=== PATIENT | female | born 1985 | race Two or more races ===

== ENCOUNTER 2022-06-14 06:56 | Emergency (ER) | payer MEDICAID ==
[~2022-06-14] VITALS: Ht 157.5 cm; Wt 70.9 kg
[2022-06-14 07:53] LABS: Basophils # (auto) 0 10 ^3/uL (0-0.2); Basophils % (auto) 0.2 % (0.0-2.0); Eosinophils # (auto) 0 10 ^3/uL (0-0.8); Hemoglobin 9.2 g/dL (12.2-16.2); Neutrophils % (auto) 73.8 % (37.0-80.0)
[2022-06-14 07:55] LABS: Eosinophils % (auto) 0.2 % (0.0-7.0); Hematocrit 28.8 % (36.0-46.0); Lymphocytes # (auto) 2.3 10 ^3/uL (0.4-5.4); Lymphocytes % (auto) 17.2 % (10.0-50.0); Mean Corpuscular Hemoglobin 26.3 pg (28.0-32.0); Mean Corpuscular Volume 82.1 fL (80.0-100.0); Monocytes # (auto) 1.2 10 ^3/uL (0-1.3); Monocytes % (auto) 8.6 % (0.0-12.0); Red Cell Distribution Width 14.9 % (11.8-14.3); White Blood Cell 13.5 10^3/uL (4.4-10.8)
[2022-06-14 08:07] LABS: Albumin 2.4 g/dL (3.4-5.0); Calcium 8.7 mg/dL (8.5-10.1)
[2022-06-14 08:11] LABS: BUN/Creatinine Ratio 26.7; Bilirubin, Total 1.1 mg/dL (0.2-1.0); Total Protein 7.9 g/dL (6.4-8.2)
[2022-06-14 08:17] LABS: Potassium 2.9 mmol/L (3.5-5.1)
[2022-06-14] MEDS ORDERED: ONDANSETRON HCL 4 MG/2 ML VIAL IV ONE (08:30)
[2022-06-14] MEDS ORDERED: SODIUM CHLORIDE 0.9% 1,000 ML IV ONE (08:30)
[2022-06-14] MEDS ORDERED: FAMOTIDINE (10MG/ML) 2ML VL IV ONE (08:30)
[2022-06-14] MEDS ORDERED: POTASSIUM EFFERVESENT TAB 25 MEQ PO ONE ×2 (08:30→11:00)
[2022-06-14] MEDS ORDERED: MAALOX PLUS or MAALOX 30 ML PO ONE (08:30)
[2022-06-14 08:46] LABS: Urine Bacteria FEW /hpf (None Seen); Urine Blood Negative /uL (Negative); Urine Hyaline Cast MOD /lpf (0 - 2); Urine Mucus FEW (None Seen); Urine Specific Gravity 1.026 (1.001-1.035); Urine WBC 7 /hpf (0 - 5)
[2022-06-14 13:11] VITALS: BP 120/73
== END 2022-06-14 13:11 | disposition home or self-care (01) ==
LOC: ER 06:56
DX: R10.13 Epigastric pain (principal); R19.7 Diarrhea, unspecified; Z32.02 Encounter for pregnancy test, result negative
CPT/HCPCS: 36415; 80053; 81001; 81025; 83690; 84132; 85025; 96361; 96374; 96375; 99284; J2405; J3490; J7030

== ENCOUNTER 2024-06-20 16:25 | Inpatient (IN) | payer MEDICAID, OTHER ==
[~2024-06-20] VITALS: Ht 157.5 cm; Wt 72.6 kg
[2024-06-20 17:17] LABS: Basophils % (auto) 0.3 % (0.0-2.0); Eosinophils # (auto) 0 10 ^3/uL (0-0.8); Eosinophils % (auto) 0.2 % (0.0-7.0); Hemoglobin 8.3 g/dL (12.2-16.2); Lymphocytes # (auto) 1.7 10 ^3/uL (0.4-5.4); Mean Corpuscular Volume 81.4 fL (80.0-100.0)
[2024-06-20 17:19] LABS: Basophils # (auto) 0 10 ^3/uL (0-0.2); Hematocrit 26.3 % (36.0-46.0); Mean Corpuscular Hemoglobin 25.6 pg (28.0-32.0); Mean Corpuscular Hgb Conc. 31.5 g/dL (32.0-36.0); Monocytes # (auto) 0.9 10 ^3/uL (0-1.3); Neutrophils # (auto) 12.4 10 ^3/uL (1.6-8.6); Neutrophils % (auto) 82.5 % (37.0-80.0); Platelet Count (auto) 661 10^3/uL (140-450); Red Blood Cells 3.23 10^6/uL (4.0-5.20); Red Cell Distribution Width 15.5 % (11.8-14.3)
[2024-06-20 17:35] LABS: Alanine Aminotransferase 10 U/L (7-40); Albumin 3.6 g/dL (3.2-4.8); Alkaline Phosphatase 60 U/L (46-116); Anion Gap 9 (5-15); Blood Urea Nitrogen 13 mg/dL (9-23); Calcium 9.2 mg/dL (8.7-10.4); Carbon Dioxide 25 mmol/L (20-31); Chloride 102 mmol/L (98-107); Magnesium 1.6 mg/dL (1.6-2.6); Potassium 4.2 mmol/L (3.5-5.1); Sodium 136 mmol/L (136-145)
[2024-06-20 17:36] LABS: Bilirubin, Total 0.4 mg/dL (0.2-1.0); Total Protein 7.6 g/dL (5.7-8.2)
[2024-06-20 17:38] LABS: INR 1.19 (0.9-1.15); Partial Thromboplastin Time 27.1 SEC (24.5-34.5); Prothrombin Time 12.4 sec (9.3-11.8)
[2024-06-20 17:43] LABS: Aspartate Aminotransferase 42 U/L (13-40); Glucose 133 mg/dL (74-106)
[2024-06-20] MEDS: IOHEXOL 300 MG/ML 100ML BOTTLE IJ ONE (17:57)
[2024-06-20] MEDS: SODIUM CHLORIDE 0.9% 500 ML IV ONE (18:00)
--- NOTE | 2024-06-20 18:21 | DVH ---
EXAMINATION: AP portable chest radiograph CLINICAL HISTORY: tachycardia COMPARISON: None FINDINGS: Central interstitial prominence. Right basilar opacity with blunting of the right costophrenic angle. Left lung is relatively clear. The cardiomediastinal silhouette appears within normal limits given t echnique. No definite pneumothorax. Gaseous bowel distention noted in the left upper quadrant. IMPRESSION: Right pleural effusion/atelectasis. Underlying consolidation not excluded. Pulmonary vascular congestion. Please correlate to exclude atypical infection.
--- NOTE | 2024-06-20 18:25 | DVH ---
EXAM: CT Abdomen and Pelvis Without and With Intravenous Contrast CLINICAL INDICATION: Abdominal mass TECHNIQUE: Axial computed tomography images of the abdomen and pelvis without and with intravenous c ontrast. This CT exam was performed using one or more of the following dose reduction techniques: a utomated exposure control, adjustment of the mA and/or kV according to patient size, and/or use of it erative reconstruction technique. CONTRAST: COMPARISON: None FINDINGS: LUNG BASES: See below. PLEURAL SPACE: Right pleural effusion with compressive atelectasis. ABDOMEN: LIVER: Fatty liver. GALLBLADDER AND BILE DUCTS: Unremarkable. No calcified stones. No ductal dilation. PANCREAS: Unremarkable. No mass. No ductal dilation. SPLEEN: Unremarkable. No splenomegaly. ADRENALS: Unremarkable. No mass. KIDNEYS AND URETERS: Unremarkable. No solid mass. No obstructing stones. No hydronephrosis. STOMACH AND BOWEL: Unremarkable. No obstruction. No mucosal thickening. PELVIS: APPENDIX: No findings to suggest acute appendicitis. BLADDER: Unremarkable. No mass. No stones. REPRODUCTIVE: Unremarkable as visualized. ABDOMEN and PELVIS: INTRAPERITONEAL SPACE: Ascites. No free air. BONES/JOINTS: No acute fracture. No dislocation. SOFT TISSUES: Ill-defined soft tissue mass occupying close to the entire mid right abdomen measurin g up to 26.3 cm, concerning for neoplastic process such as sarcoma or gynecologic origin. VASCULATURE: Unremarkable. No abdominal aortic aneurysm. LYMPH NODES: Unremarkable. No enlarged lymph nodes. OTHER FINDINGS: . . . IMPRESSION: 1. Ill-defined soft tissue mass occupying close to the entire mid right abdomen measuring up to 26.3 cm, concerning for neoplastic process such as sarcoma or gynecologic origin. 2. Right pleural effusion with compressive atelectasis.
--- NOTE | 2024-06-20 18:50 | ED.PDOC ---
General HPI Comments Sandra Arora is a 38-year-old female patient who presents to ED with chief complaint of intermittent dull abdominal pain which has been occurring for the past month associated with increased abdominal distention, increase in weight (patient did not quantify), bilateral leg swelling and decreased appetite (she only has one meal a day currently), today patient presented yellow serous secretion from umbilicus which prompted her visit to the ER. Patient's last menstrual period was on 04/29/2024. Denies palpitation, syncope, chest pain, dyspnea, nausea, vomiting, diarrhea, bleeding, sick contacts, recent travel and motor or sensory deficits. Past medical history: Denies Surgical history: Denies Family history: Mother has hypertension Social history: Lives in [place] with [id number]. Denies current tobacco, alcohol and other drug abuse back wedger: Last menstrual period 04/29/2024. Used to have regular cycles. She is not sexually active. Allergies: Denies Home medication: Tylenol p.r.n. Chief Complaint: Abdominal Pain Time Seen by MD: 16:32 Allergies: Coded Allergies: No Known Drug Allergy (Verified Allergy, Unknown, 06/14/22) Mode of Arrival: Ambulatory Past Medical History PAST MEDICAL HISTORY: Denies Surgical History: Denies all surgeries FULLERETTE History: Denies all FULLERETTE Hx Family History Family History: Reviewed,noncontributory to illness Social History Smoker: Non-Smoker Alcohol: Denies ETOH Use Drugs: Denies Drug Use Lives In: Home Physical Exam General Appearance: No Apparent Distress, Normal HEENT: Normal ENT Inspection, Pharynx Normal, TMs Normal Neck: Full Range of Motion, Non-Tender, Normal, Normal Inspection Respiratory: Chest Non-Tender, Lungs Clear, No Accessory Muscle Use, No Respiratory Distress, Normal Breath Sounds Cardiovascular: No Edema, No JVD, No Murmur, No Gallop, Normal Peripheral Pulses, Tachycardia Breast Exam: Deferred Gastrointestinal: Abnormal Bowel Sounds, Distended, Mass, No Pulsatile Mass, Soft, Suprapubic, Tenderness Genitalia: Deferred Pelvic: Deferred Rectal: Deferred Extremities: No calf tenderness, Normal capillary refill, Normal inspection, Normal range of motion, Non-tender, No pedal edema Neurologic: Alert, tour counselor II-XII nml as Tested, No Motor Deficits, Normal Affect, Normal Mood, No Sensory Deficits Cerebellar Function: Normal Reflexes: Normal Skin: Dry, Normal Color, Warm Lymphatic: No Adenopathy Was a procedure done? Was a procedure done?: No EKG EKG : Comments Sinus tachycardia at 140 beats per minute, no ST elevation Differential Diagnosis Kidney stone (Female): Ectopic , Ovarian torsion Urinary Problem (Female): PID, UTI Other Differential Diagnosis Sepsis, anemia, cancer X-Ray, Labs, Meds, VS Vital Signs Date Time Temp Pulse Resp B/P (MAP) Pulse Ox O2 Delivery O2 Flow Rate FiO2 06/20/24 17:17 97.1 145 18 133/89 (104) 98 Lab Test 06/20/24 17:08 Range/Units White Blood Count 15.0 H 4.4-10.8 10^3/uL Red Blood Count 3.23 L 4.0-5.20 10^6/uL Hemoglobin 8.3 L 12.2-16.2 g/dL Hematocrit 26.3 L 36.0-46.0 % Mean Corpuscular Volume 81.4 80.0-100.0 fL Mean Corpuscular Hemoglobin 25.6 L 28.0-32.0 pg Mean Corpuscular Hemoglobin Concent 31.5 L 32.0-36.0 g/dL Red Cell Distribution Width 15.5 H 11.8-14.3 % Platelet Count 661 H 140-450 10^3/uL Mean Platelet Volume 6.3 L 6.9-10.8 fL Neutrophils (%) (Auto) 82.5 H 37.0-80.0 % Lymphocytes (%) (Auto) 11.0 10.0-50.0 % Monocytes (%) (Auto) 6.0 0.0-12.0 % Eosinophils (%) (Auto) 0.2 0.0-7.0 % Basophils (%) (Auto) 0.3 0.0-2.0 % Neutrophils # (Auto) 12.4 H 1.6-8.6 10 ^3/uL Lymphocytes # (Auto) 1.7 0.4-5.4 10 ^3/uL Monocytes # (Auto) 0.9 0-1.3 10 ^3/uL Eosinophils # (Auto) 0 0-0.8 10 ^3/uL Basophils # (Auto) 0 0-0.2 10 ^3/uL Nucleated Red Blood Cells 0.0 % Prothrombin Time 12.4 H 9.3-11.8 sec Prothrombin Time INR 1.19 H 0.9-1.15 Activated Partial Thromboplast Time 27.1 24.5-34.5 SEC Sodium Level 136 136-145 mmol/L Potassium Level 4.2 3.5-5.1 mmol/L Chloride Level 102 98-107 mmol/L Carbon Dioxide Level 25 20-31 mmol/L Anion Gap 9 5-15 Blood Urea Nitrogen 13 9-23 mg/dL Creatinine 0.65 0.550-1.02 mg/dL Glomerular Filtration Rate Calc 114 >90 mL/min BUN/Creatinine Ratio 20.0 10.0-20.0 Serum Glucose 133 H 74-106 mg/dL Lactic Acid Level 3.0 *H 0.4-2.0 mmol/L Calcium Level 9.2 8.7-10.4 mg/dL Phosphorus Level 3.0 2.4-5.1 mg/dL Magnesium Level 1.6 1.6-2.6 mg/dL Total Bilirubin 0.4 0.2-1.0 mg/dL Aspartate Amino Transferase (AST) 42 H 13-40 U/L Alanine Aminotransferase (ALT) 10 7-40 U/L Alkaline Phosphatase 60 46-116 U/L Ammonia < 10 L 11-32 umol/L Total Protein 7.6 5.7-8.2 g/dL Albumin 3.6 3.2-4.8 g/dL Thyroid Stimulating Hormone (TSH) Pending Beta HCG, Quantitative 0.4 L 1.5-4.2 mIU/mL Current Medications Medications (Trade) Dose Ordered Sig/Eveline Route Start Time Stop Time Status Last Admin Sodium Chloride 500 ml @ 500 mls/hr Q1H ONCE IV 06/20/24 18:00 06/20/24 18:59 06/20/24 18:00 X-Ray, Labs, Meds, VS Comment Laboratory results shows leukocytosis (15), normocytic anemia, increased lactic acid (three), borderline normal liver function test. 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 Patient will benefit from admission and IV antibiotics at this point. Suggest evaluation by back wedger specialist and eventual biopsy. Critical Care Note Critical Care Time?: No Stability Stability form required: No Heart Score Heart Score: Heart Score Response (Comments) Value History N/A 0 EKG N/A 0 Age N/A 0 Risk Factors N/A 0 Troponin N/A 0 Total 0 EZIO CRUZ RESIDENT Jun 20, 2024 18:50
[2024-06-20] MEDS ORDERED: ONDANSETRON HCL 4 MG/2 ML VIAL IV PRN ×2 (19:00→23:30)
[2024-06-20] MEDS ORDERED: MORPHINE SULFATE INJ 2 MG/ml SYRG IV PRN ×2 (19:00→23:30)
--- NOTE | 2024-06-20 19:02 | DVH ---
EXAM: US Abdomen Limited CLINICAL INDICATION: ASCITES, evaluate eventual paracentesis TECHNIQUE: Real-time ultrasound of the abdomen with image documentation. COMPARISON: None FINDINGS: SOFT TISSUES: Isoechoic structure within the umbilicus region, likely mass or bowel. FREE FLUID: No ascites. OTHER FINDINGS: . . IMPRESSION: 1. Isoechoic structure within the umbilicus region, likely mass or bowel. 2. No ascites.
[2024-06-20 19:26] LABS: % Iron Saturation 6.4 % (15-50)
[2024-06-20] MEDS: cefTRIAXone 1GM/50ML D5W 50 ML IV ONE (19:32)
[2024-06-20] MEDS: PANTOPRAZOLE 40 MG/10 ML VIAL INJ IV ONE (19:32)
--- NOTE | 2024-06-20 21:47 | DVHHPRES ---
Review of Systems Allergies: Coded Allergies: No Known Drug Allergy (Verified Allergy, Unknown, 06/14/22) Medications Current Medications Medications Dose Ordered Sig/Eveline Route Start Time Stop Time Status Last Admin Dose Admin Ceftriaxone Sodium 50 ml @ 100 mls/hr DAILY@09 IV 06/21/24 09:00 Morphine Sulfate 1 mg Q4HP PRN IV 06/20/24 19:00 Ondansetron HCl 4 mg Q4HPRN PRN IV 06/20/24 19:00 Pantoprazole Sodium 40 mg DAILY IV 06/21/24 10:00 Exam Vital Signs Vital Signs Date Time Temp Pulse Resp B/P (MAP) Pulse Ox O2 Delivery O2 Flow Rate FiO2 06/20/24 18:54 121 18 98 Room Air 06/20/24 18:54 98.0 140/86 (104) 98.0 Labs/Xrays Labs Test 06/20/24 18:41 06/20/24 17:08 Range/Units Lactic Acid Level 2.6 *H 0.4-2.0 mmol/L Iron Level 15 L 50-170 ug/dL Total Iron Binding Capacity 235 L 250-425 ug/dL Percent Iron Saturation 6.4 L 15-50 % White Blood Count 15.0 H 4.4-10.8 10^3/uL Red Blood Count 3.23 L 4.0-5.20 10^6/uL Hemoglobin 8.3 L 12.2-16.2 g/dL Hematocrit 26.3 L 36.0-46.0 % Mean Corpuscular Volume 81.4 80.0-100.0 fL Mean Corpuscular Hemoglobin 25.6 L 28.0-32.0 pg Mean Corpuscular Hemoglobin Concent 31.5 L 32.0-36.0 g/dL Red Cell Distribution Width 15.5 H 11.8-14.3 % Platelet Count 661 H 140-450 10^3/uL Mean Platelet Volume 6.3 L 6.9-10.8 fL Neutrophils (%) (Auto) 82.5 H 37.0-80.0 % Lymphocytes (%) (Auto) 11.0 10.0-50.0 % Monocytes (%) (Auto) 6.0 0.0-12.0 % Eosinophils (%) (Auto) 0.2 0.0-7.0 % Basophils (%) (Auto) 0.3 0.0-2.0 % Neutrophils # (Auto) 12.4 H 1.6-8.6 10 ^3/uL Lymphocytes # (Auto) 1.7 0.4-5.4 10 ^3/uL Monocytes # (Auto) 0.9 0-1.3 10 ^3/uL Eosinophils # (Auto) 0 0-0.8 10 ^3/uL Basophils # (Auto) 0 0-0.2 10 ^3/uL Nucleated Red Blood Cells 0.0 % Prothrombin Time 12.4 H 9.3-11.8 sec Prothrombin Time INR 1.19 H 0.9-1.15 Activated Partial Thromboplast Time 27.1 24.5-34.5 SEC Sodium Level 136 136-145 mmol/L Potassium Level 4.2 3.5-5.1 mmol/L Chloride Level 102 98-107 mmol/L Carbon Dioxide Level 25 20-31 mmol/L Anion Gap 9 5-15 Blood Urea Nitrogen 13 9-23 mg/dL Creatinine 0.65 0.550-1.02 mg/dL Glomerular Filtration Rate Calc 114 >90 mL/min BUN/Creatinine Ratio 20.0 10.0-20.0 Serum Glucose 133 H 74-106 mg/dL Calcium Level 9.2 8.7-10.4 mg/dL Phosphorus Level 3.0 2.4-5.1 mg/dL Magnesium Level 1.6 1.6-2.6 mg/dL Total Bilirubin 0.4 0.2-1.0 mg/dL Aspartate Amino Transferase (AST) 42 H 13-40 U/L Alanine Aminotransferase (ALT) 10 7-40 U/L Alkaline Phosphatase 60 46-116 U/L Ammonia < 10 L 11-32 umol/L Total Protein 7.6 5.7-8.2 g/dL Albumin 3.6 3.2-4.8 g/dL Thyroid Stimulating Hormone (TSH) 5.14 H 0.55-4.78 uIU/mL Beta HCG, Quantitative 0.4 L 1.5-4.2 mIU/mL CORAZON HERNANDES RESDIENT Jun 20, 2024 21:47
[2024-06-20 22:28] VITALS: RESP 18; O2SAT 97
[2024-06-20 23:17] VITALS: BP 111/70; PULSE 106; RESP 18; TEMP 97.9; O2SAT 98
[2024-06-20] MEDS ORDERED: HYDROcodone-ACET 5/325MG TAB PO PRN (23:30)
[2024-06-20] MEDS: SODIUM CHLORIDE 0.9% 1,000 ML IV SCH (23:30)
[2024-06-20] MEDS ORDERED: ACETAMINOPHEN 325 MG TAB PO PRN (23:30)
--- NOTE | 2024-06-20 23:43 | DVHHP2 ---
Admitting Diagnosis: Admission date: 06/20/24 Yellow serous secretion from umbilicus with other associated symptoms. History of Present Illness Patient is a 38 old female who presents to the emergency department for intermittent lower abdominal pain has been around for the past month and also associated with increased abdominal distention, bilateral leg swelling, decreased appetite, and increase in weight. Today patient presented with yellow serous secretion from umbilicus which motivated her to visit the ER. Patient states that her last menstrual cycle was 04/29/2024. Denies palpitation, syncope, chest pain, dyspnea, nausea, vomiting, diarrhea, bleeding, sick contacts, recent travel and motor or sensory deficits. While in the emergency department the patient was evaluated by the provider, As per provider: Labs, vital signs, and imagining monitored. Patient will be admitted for further evaluation and treatment. I discussed admission with the patient/family and is in agreement to treatment plan. Allergies: Coded Allergies: No Known Drug Allergy (Verified Allergy, Unknown, 06/14/22) Current Medications Current Medications Medications (Trade) Dose Ordered Sig/Eveline Route PRN Reason Start Time Stop Time Status Last Admin Ceftriaxone Sodium 50 ml @ 100 mls/hr DAILY@09 IV 06/21/24 09:00 06/21/24 09:30 Pantoprazole Sodium (Protonix) 40 mg DAILY IV 06/21/24 10:00 06/21/24 09:32 Sodium Chloride 1,000 ml @ 60 mls/hr [id number] IV 06/20/24 23:30 06/20/24 23:30 Acetaminophen/ Hydrocodone Bitart ([place] 5/325MG Tab) 1 tab Q4HP PRN PO MODERATE PAIN (4-6 PAIN SCALE) 06/20/24 23:30 Ondansetron HCl (Zofran) 4 mg Q4HP PRN IV NAUSEA / VOMITING 06/20/24 23:30 Docusate Sodium (Colace Capsule) 100 mg BIDPRN PRN PO FOR CONSTIPATION 06/20/24 23:30 Enoxaparin Sodium (Lovenox) 40 mg DAILY SC 06/21/24 10:00 06/21/24 09:32 Acetaminophen (Tylenol Tablet) 650 mg Q6HP PRN PO PAIN SCALE 1-3 OR TEMP>100.4 06/20/24 23:30 Morphine Sulfate 2 mg Q4HPRN PRN IV SEVERE PAIN (7-10 PAIN SCALE) 06/20/24 23:30 Iron Sucrose 110 ml @ 110 mls/hr DAILY@1200 IV 06/21/24 12:00 06/25/24 12:59 06/21/24 12:11 Review of Systems Constitutional: denies chills, denies fever, denies malaise Eyes: denies eye pain, denies vision change ENT: denies ear pain, denies headache, denies nasal congestion, denies painful swallowing, denies voice change Cardiovascular: denies chest pain, denies edema, denies orthopnea, denies palpitations, denies paroxysmal nocturnal dyspnea Respiratory: denies cough, denies shortness of breath Gastrointestinal: denies constipation, denies diarrhea, denies nausea, denies vomiting Genitourinary: denies dysuria, denies frequent urination, denies urethral discharge Musculoskeletal: denies back pain, denies joint pain, denies muscle pain Skin: denies bruising, denies itching, denies rash Neurological: denies focal weakness, denies headache, denies sensory changes Psychiatric: denies anxiety, denies depression Endocrine: denies polydipsia, denies polyuria Hematologic/Lymphatic: denies easy bleeding, denies easy bruising, denies enlarged lymph nodes Allergic/Immunologic: denies allergy, denies hives Vital Signs Vital Signs Date Time Temp Pulse Resp B/P (MAP) Pulse Ox O2 Delivery O2 Flow Rate FiO2 06/21/24 16:39 98.1 97 18 110/64 (79) 96 98.1 06/21/24 13:40 Room Air* 0 21 Physical Exam General Appearance: alert, no distress HEENT: EOMI, PERRLA, normal external inspect of ears, no icterus, no nasal drainage Neck: no carotid bruit, no jugular venous distention (JVD), no lymphadenopathy Chest: normal thorax Respiratory: clear to auscultation, normal air movement Cardiovascular: regular rate and rhythm, no diastolic murmur, no jugular venous distention (JVD), no rub, no systolic murmur Abdominal: soft, no hepatomegaly, no mass, no splenomegaly, no tenderness Genitourinary: grossly normal external Musculoskeletal: no joint tenderness, no swelling Extremities: normal pulses, no calf tenderness, no clubbing, no cyanosis, no edema Skin: no bruising, no jaundice, no rash Neurological: alert, No focal deficit Results Labs Test 06/21/24 04:30 06/21/24 04:25 06/20/24 23:57 06/20/24 18:41 Range/Units Urine Color Yellow Yellow Urine Clarity Turbid H Clear Urine pH 6.0 5.0-9.0 Urine Specific [place] > 1.050 H 1.001-1.035 Urine Protein 1+ H Negative Urine Ketones Negative Negative Urine Blood Negative Negative /uL Urine Nitrite Negative Negative Urine Bilirubin Negative Negative Urine Urobilinogen Normal Negative mg/dL Urine Leukocyte Esterase 2+ Negative /uL Urine RBC 7 0 - 4 /hpf Urine Microscopic WBC 19 H 0-5 /HPF Urine Squamous Epithelial Cells Few <5 /hpf Urine Bacteria None seen None Seen /hpf Urine Hyaline Casts Few 0 - 2 /lpf Urine Mucus Few None Seen Urine Glucose Normal Normal mg/dL Urine Opiates Screen Neg NEGATIVE Urine Fentanyl Screen Neg NEGATIVE Urine Barbiturates Screen Neg NEGATIVE Urine Phencyclidine Screen Neg NEGATIVE Urine Amphetamines Screen Neg NEGATIVE Urine Benzodiazepines Screen Neg NEGATIVE Urine Cocaine Screen Neg NEGATIVE Urine Cannabinoids Screen Neg NEGATIVE White Blood Count 14.1 H 4.4-10.8 10^3/uL Red Blood Count 3.03 L 4.0-5.20 10^6/uL Hemoglobin 7.7 L 12.2-16.2 g/dL Hematocrit 24.7 L 36.0-46.0 % Mean Corpuscular Volume 81.3 80.0-100.0 fL Mean Corpuscular Hemoglobin 25.4 L 28.0-32.0 pg Mean Corpuscular Hemoglobin Concent 31.2 L 32.0-36.0 g/dL Red Cell Distribution Width 15.5 H 11.8-14.3 % Platelet Count 567 H 140-450 10^3/uL Mean Platelet Volume 6.8 L 6.9-10.8 fL Neutrophils (%) (Auto) 78.8 37.0-80.0 % Lymphocytes (%) (Auto) 14.6 10.0-50.0 % Monocytes (%) (Auto) 5.5 0.0-12.0 % Eosinophils (%) (Auto) 0.2 0.0-7.0 % Basophils (%) (Auto) 0.9 0.0-2.0 % Neutrophils # (Auto) 11.1 H 1.6-8.6 10 ^3/uL Lymphocytes # (Auto) 2.1 0.4-5.4 10 ^3/uL Monocytes # (Auto) 0.8 0-1.3 10 ^3/uL Eosinophils # (Auto) 0 0-0.8 10 ^3/uL Basophils # (Auto) 0.1 0-0.2 10 ^3/uL Nucleated Red Blood Cells 0.0 % Sodium Level 136 136-145 mmol/L Potassium Level 4.2 3.5-5.1 mmol/L Chloride Level 102 98-107 mmol/L Carbon Dioxide Level 25 20-31 mmol/L Anion Gap 9 5-15 Blood Urea Nitrogen 13 9-23 mg/dL Creatinine 0.65 0.550-1.02 mg/dL Glomerular Filtration Rate Calc 114 >90 mL/min BUN/Creatinine Ratio 20.0 10.0-20.0 Serum Glucose 88 74-106 mg/dL Calcium Level 8.7 8.7-10.4 mg/dL Total Bilirubin 0.3 0.2-1.0 mg/dL Aspartate Amino Transferase (AST) 33 13-40 U/L Alanine Aminotransferase (ALT) < 9 7-40 U/L Alkaline Phosphatase 50 46-116 U/L Total Protein 7.1 5.7-8.2 g/dL Albumin 3.6 3.2-4.8 g/dL Lactate Dehydrogenase 220 120-246 U/L Carcinoembryonic Antigen 51.28 <=5.0 ng/mL Lactic Acid Level 2.6 *H 0.4-2.0 mmol/L Iron Level 15 L 50-170 ug/dL Total Iron Binding Capacity 235 L 250-425 ug/dL Percent Iron Saturation 6.4 L 15-50 % Test 06/20/24 17:08 Range/Units Prothrombin Time 12.4 H 9.3-11.8 sec Prothrombin Time INR 1.19 H 0.9-1.15 Activated Partial Thromboplast Time 27.1 24.5-34.5 SEC Phosphorus Level 3.0 2.4-5.1 mg/dL Magnesium Level 1.6 1.6-2.6 mg/dL Ammonia < 10 L 11-32 umol/L Thyroid Stimulating Hormone (TSH) 5.14 H 0.55-4.78 uIU/mL Beta HCG, Quantitative 0.4 L 1.5-4.2 mIU/mL Microbiology Date/Time Source Procedure Growth Status 06/20/24 18:41 Blood Blood Culture - Preliminary NO GROWTH AFTER 24 HOURS OF INCUBATION. Resulted Plan 1. Sepsis Plan: Monitor, IV antibiotics 2. Acute cystitis without hematuria Plan: Monitor, PPI, DVT prophylaxis 3. Anemia, unspecified Plan: Monitor, IV iron 4. Uterine malignant neoplasm Plan: Monitor, SENIOR MARKETING ANALYST consult, tumor marker KG Plan discussed with: Patient, Other YOLA LAWRENCE NP Jun 20, 2024 23:43
[2024-06-21] VITALS (8 sets, daily range): BP systolic 95–118; BP diastolic 64–78; PULSE 95–100; RESP 14–19; TEMP 98–98.5; O2SAT 95–98
[2024-06-21 04:42] LABS: Urine Bacteria None Seen /hpf (None Seen)
[2024-06-21 04:52] LABS: Eosinophils # (auto) 0 10 ^3/uL (0-0.8); Eosinophils % (auto) 0.2 % (0.0-7.0); Hemoglobin 7.7 g/dL (12.2-16.2); Lymphocytes # (auto) 2.1 10 ^3/uL (0.4-5.4); Platelet Count (auto) 567 10^3/uL (140-450)
[2024-06-21 04:55] LABS: Basophils # (auto) 0.1 10 ^3/uL (0-0.2); Basophils % (auto) 0.9 % (0.0-2.0); Hematocrit 24.7 % (36.0-46.0); Lymphocytes % (auto) 14.6 % (10.0-50.0); Mean Corpuscular Hemoglobin 25.4 pg (28.0-32.0); Mean Corpuscular Hgb Conc. 31.2 g/dL (32.0-36.0); Mean Corpuscular Volume 81.3 fL (80.0-100.0); Monocytes # (auto) 0.8 10 ^3/uL (0-1.3); Monocytes % (auto) 5.5 % (0.0-12.0); Neutrophils # (auto) 11.1 10 ^3/uL (1.6-8.6); Neutrophils % (auto) 78.8 % (37.0-80.0); Red Blood Cells 3.03 10^6/uL (4.0-5.20); Red Cell Distribution Width 15.5 % (11.8-14.3); White Blood Cell 14.1 10^3/uL (4.4-10.8)
[2024-06-21 04:58] LABS: Urine Blood Negative /uL (Negative); Urine Clarity Turbid (Clear); Urine Color Yellow (Yellow); Urine Hyaline Cast FEW /lpf (0 - 2); Urine Mucus FEW (None Seen); Urine Protein, UAD 1+ (Negative); Urine Squamous Epithelial Cell FEW /hpf (<5); Urine Urobilinogen Normal (Negative); Urine WBC 19 /HPF (0-5)
[2024-06-21 05:00] LABS: Urine Specific Gravity > 1.050 (1.001-1.035)
[2024-06-21 05:10] LABS: Amphetamine Screen, Urine Neg (NEGATIVE); Benzodiazephine Screen, Urine Neg (NEGATIVE)
[2024-06-21 05:11] LABS: Barbiturate Scree,Urine Neg (NEGATIVE); Cocaine Screen, Urine Neg (NEGATIVE); Opiate Scree,Urine Neg (NEGATIVE)
[2024-06-21 05:15] LABS: Cannabinoid Screen, Urine Neg (NEGATIVE); Phencyclidine Screen, Urine Neg (NEGATIVE)
[2024-06-21 05:15] LABS: Albumin 3.6 g/dL (3.2-4.8); Alkaline Phosphatase 50 U/L (46-116); Anion Gap 9 (5-15); Aspartate Aminotransferase 33 U/L (13-40); Blood Urea Nitrogen 13 mg/dL (9-23); Carbon Dioxide 25 mmol/L (20-31); Chloride 102 mmol/L (98-107); Glucose 88 mg/dL (74-106); Potassium 4.2 mmol/L (3.5-5.1); Sodium 136 mmol/L (136-145)
[2024-06-21 05:16] LABS: Alanine Aminotransferase < 9 U/L (7-40); Bilirubin, Total 0.3 mg/dL (0.2-1.0); Calcium 8.7 mg/dL (8.7-10.4); Total Protein 7.1 g/dL (5.7-8.2)
[2024-06-21] MEDS: cefTRIAXone 1GM/50ML D5W 50 ML IV SCH (09:30)
[2024-06-21] MEDS: ENOXAPARIN SOD 40 MG/0.4 ML SYRINGE SC SCH (09:32)
[2024-06-21] MEDS: PANTOPRAZOLE 40 MG/10 ML VIAL INJ IV SCH (09:32)
[2024-06-21] MEDS: IRON SUCROSE COMPLEX 110 ML IV SCH (12:11)
--- NOTE | 2024-06-21 13:13 | ECG ---
[facility] Test Date: 2024-06-20 Test Time: 16:49:43 Pat Name: LILIYA FISH Department: ED Room: [facility]24[facility] Gender: F Extrusion Die Corrector: ANAMIKA : 1985 Requested By: YOLA LAWRENCE Order Number: [id number] Reading MD: Duong Wadsworth Measurements Intervals [place] Rate: 121 P: 104 ND: 117 QRS: -65 QRSD: 97 T: 27 QT: 298 QTc: 423 Interpretive Statements Sinus tachycardia Left anterior fascicular block Abnormal R-wave progression, late transition Electronically Signed On 06-22-2024 13:15:14 PST by Duong Wadsworth Please click the below link to view image of tracing.
--- NOTE | 2024-06-21 20:53 | DVHINCON2 ---
DATE OF CONSULTATION: 06/21/2024 REASON FOR CONSULTATION: Gynecological malignancy. HISTORY OF PRESENT ILLNESS: The patient is a 38-year-old 0, para 0 with last menstrual period 04/29/2024, admitted for intermittent abdominal pain, which has been occurring over the past few months with increased abdominal distention, increase in weight; however, no appetite to eat, associated with bilateral leg swelling. The patient denies having any vaginal bleeding. Her last Pap was a few years ago. The patient had a CT, which revealed an ill-defined soft tissue mass occupying close to entire mid right abdomen, measuring 26.3 cm, associated with right pleural effusion, isoechoic structure within the umbilical region, suspicious for uterine sarcoma. PAST MEDICAL HISTORY: None. PAST SURGICAL HISTORY: None. SOCIAL HISTORY: None. FAMILY HISTORY: None. OBSTETRIC AND GYNECOLOGIC HISTORY: The patient is nulligravid. REVIEW OF SYSTEMS: Review of systems is consistent with HPI. PHYSICAL EXAMINATION: VITAL SIGNS: Stable, afebrile. HEENT: Within normal limits. CARDIOVASCULAR: Regular rate and rhythm. LUNGS: Clear to auscultation. BREASTS: Decreased breath sounds at the base. ABDOMEN: Obese, distended, positive for generalized tenderness. PELVIC: External genitalia within normal limits. Vagina normal. Cervix grossly normal. Uterus unable to assess size due to abdominal distention. EXTREMITIES: No clubbing, cyanosis or edema. IMPRESSION: * Abdominal distention, soft tissue mass, suspicious for uterine malignant neoplasm, such as leiomyosarcoma. * Anemia. RECOMMENDATION: The patient needs to be seen by SUPPLY CHAIN PROCUREMENT MANAGER/ONC as soon as possible. The patient is scheduled for paracentesis. At this point, due to high level of acuity of this complex problem, recommend SUPPLY CHAIN PROCUREMENT MANAGER/Oncology evaluation as soon as possible. We will sign off. Anjali Brown DO MZ/PRM TID: [id number] RECEIPT: [id number]
--- NOTE | 2024-06-21 21:00 | DVHPN2 ---
Progress Note - Dictate Date Seen: Jun 21, 2024 Medical Necessity Reason Pt with a Central, PICC or Fol: No vital signs Vital Sign Date Time Temp Pulse Resp B/P (MAP) Pulse Ox O2 Delivery O2 Flow Rate FiO2 06/21/24 16:39 98.1 97 18 110/64 (79) 96 98.1 06/21/24 13:40 Room Air* 0 21 Total Intake and Output 06/20/24 06/20/24 06/21/24 15:00 23:00 07:00 Intake Total 550 ml 200 ml Balance 550 ml 200 ml medications Current Medications Medications Dose Ordered Sig/Eveline Route Start Time Stop Time Status Last Admin Dose Admin Ceftriaxone Sodium 50 ml @ 100 mls/hr DAILY@09 IV 06/21/24 09:00 06/21/24 09:30 Pantoprazole Sodium 40 mg DAILY IV 06/21/24 10:00 06/21/24 09:32 Sodium Chloride 1,000 ml @ 60 mls/hr [id number] IV 06/20/24 23:30 06/20/24 23:30 Acetaminophen/ Hydrocodone Bitart 1 tab Q4HP PRN PO 06/20/24 23:30 Ondansetron HCl 4 mg Q4HP PRN IV 06/20/24 23:30 Docusate Sodium 100 mg BIDPRN PRN PO 06/20/24 23:30 Enoxaparin Sodium 40 mg DAILY SC 06/21/24 10:00 06/21/24 09:32 Acetaminophen 650 mg Q6HP PRN PO 06/20/24 23:30 Morphine Sulfate 2 mg Q4HPRN PRN IV 06/20/24 23:30 Iron Sucrose 110 ml @ 110 mls/hr DAILY@1200 IV 06/21/24 12:00 06/25/24 12:59 06/21/24 12:11 objective General Appearance: alert, no distress HEENT: EOMI, PERRLA, normal external inspect of ears, no icterus, no nasal drainage Neck: no carotid bruit, no jugular venous distention (JVD), no lymphadenopathy Chest: normal thorax Respiratory: clear to auscultation, normal air movement Cardiovascular: regular rate and rhythm, no diastolic murmur, no jugular venous distention (JVD), no rub, no systolic murmur Abdominal: soft, no hepatomegaly, no mass, no splenomegaly, no tenderness Genitourinary: grossly normal external Musculoskeletal: no joint tenderness, no swelling Extremities: normal pulses, no calf tenderness, no clubbing, no cyanosis, no edema Skin: no bruising, no jaundice, no rash Neurological: alert, No focal deficit laboratory and microbiology Laboratory Tests 06/21/24 04:25 Test 06/21/24 04:25 Range/Units Serum Glucose 88 74-106 mg/dL Problem List 1. Sepsis Plan: Monitor, IV antibiotics 2. Acute cystitis without hematuria Plan: Monitor, PPI, DVT prophylaxis 3. Anemia, unspecified Plan: Monitor, IV iron 4. Uterine malignant neoplasm Plan: Monitor, UNDERWRITER M[employer]GAGE LOAN consult, tumor marker KG Assessment/Plan Subjective: Patient is awake and alert. Objective: Patient is a 38 year old female who states her last menses cycle was last year. Patient has a very large distended abdomen. Patients say she has lost lots of weight over the past several months, she can't remember how much. Patient appears to be emaciated with a large, distended abdomen. Patient's CT imaging shows a metastatic process. A patient states she has not received any follow up. Patient's sister and mother is at bedside. Plan: Waiting for obgyn and oncology consults. Plan discussed with: Patient, Other YOLA LAWRENCE NP Jun 21, 2024 21:00
[2024-06-21] MEDS: DOCUSATE SOD 100 MG CAP PO PRN (22:01)
[2024-06-22 01:00] VITALS: BP 100/62; PULSE 88; RESP 17; TEMP 98.6; O2SAT 97
[2024-06-22 05:00] VITALS: BP 99/57; PULSE 85; RESP 17; TEMP 97.8; O2SAT 98
[2024-06-22 08:30] VITALS: BP 113/65; PULSE 88; RESP 18; TEMP 97.8; O2SAT 97
[2024-06-22 12:58] VITALS: BP 107/75; PULSE 89; RESP 17; TEMP 97.7; O2SAT 97
[2024-06-22 14:19] LABS: Basophils # (auto) 0 10 ^3/uL (0-0.2); Basophils % (auto) 0.3 % (0.0-2.0); Eosinophils # (auto) 0.1 10 ^3/uL (0-0.8); Eosinophils % (auto) 0.6 % (0.0-7.0); Hematocrit 24.2 % (36.0-46.0); Hemoglobin 7.5 g/dL (12.2-16.2); Lymphocytes # (auto) 1.6 10 ^3/uL (0.4-5.4); Lymphocytes % (auto) 14.7 % (10.0-50.0); Mean Corpuscular Hemoglobin 25.2 pg (28.0-32.0); Mean Corpuscular Volume 81.2 fL (80.0-100.0); Monocytes # (auto) 0.8 10 ^3/uL (0-1.3); Neutrophils # (auto) 8.6 10 ^3/uL (1.6-8.6); Neutrophils % (auto) 77.4 % (37.0-80.0); Platelet Count (auto) 536 10^3/uL (140-450); Red Blood Cells 2.98 10^6/uL (4.0-5.20); Red Cell Distribution Width 15.7 % (11.8-14.3); White Blood Cell 11.1 10^3/uL (4.4-10.8)
[2024-06-22 14:28] LABS: Chloride 101 mmol/L (98-107); Potassium 3.7 mmol/L (3.5-5.1)
[2024-06-22 14:29] LABS: Anion Gap 9 (5-15); Carbon Dioxide 25 mmol/L (20-31)
[2024-06-22 14:30] LABS: Calcium 8.5 mg/dL (8.7-10.4); Sodium 135 mmol/L (136-145)
[2024-06-22 14:35] LABS: BUN/Creatinine Ratio 18.6 (10.0-20.0); Blood Urea Nitrogen 13 mg/dL (9-23)
[2024-06-22 14:43] LABS: Glucose 106 mg/dL (74-106)
[2024-06-22 16:43] VITALS: BP 107/73; PULSE 97; RESP 17; TEMP 98.7; O2SAT 97
--- NOTE | 2024-06-22 20:10 | DVHPN2 ---
Progress Note Date Seen: Jun 22, 2024 Medical Necessity Reason Pt with a Central, PICC or Fol: No Subjective Review of Systems: CVS:Normal, RESPIRATORY:Normal, GI:Normal Objective vital signs Vital Sign Date Time Temp Pulse Resp B/P (MAP) Pulse Ox O2 Delivery O2 Flow Rate FiO2 06/22/24 16:43 98.7 97 17 107/73 (84) 97 98.7 06/22/24 08:00 Room Air* 0 21 Total Intake and Output 06/21/24 06/21/24 06/22/24 15:00 23:00 07:00 Intake Total 650 ml 100 ml 300 ml Output Total 500 ml Balance 650 ml 100 ml -200 ml medications Current Medications Medications Dose Ordered Sig/Eveline Route Start Time Stop Time Status Last Admin Dose Admin Ceftriaxone Sodium 50 ml @ 100 mls/hr DAILY@09 IV 06/21/24 09:00 06/22/24 09:45 100 MLS/HR Pantoprazole Sodium 40 mg DAILY IV 06/21/24 10:00 06/22/24 09:45 40 MG Sodium Chloride 1,000 ml @ 60 mls/hr [id number] IV 06/20/24 23:30 06/22/24 08:50 60 MLS/HR Acetaminophen/ Hydrocodone Bitart 1 tab Q4HP PRN PO 06/20/24 23:30 Ondansetron HCl 4 mg Q4HP PRN IV 06/20/24 23:30 Docusate Sodium 100 mg BIDPRN PRN PO 06/20/24 23:30 06/21/24 22:01 100 MG Enoxaparin Sodium 40 mg DAILY SC 06/21/24 10:00 06/22/24 09:45 40 MG Acetaminophen 650 mg Q6HP PRN PO 06/20/24 23:30 Morphine Sulfate 2 mg Q4HPRN PRN IV 06/20/24 23:30 Iron Sucrose 110 ml @ 110 mls/hr DAILY@1200 IV 06/21/24 12:00 06/25/24 12:59 06/22/24 12:00 110 MLS/HR Examination: GENERAL:Normal, GENERAL:Abnormal (Emaciated), LUNGS:Normal, CVS:Normal, ABDOMEN:Abnormal (Severe distention), SKIN:Normal, NEURO:Normal laboratory and microbiology Laboratory Tests 06/22/24 13:50 Test 06/22/24 13:50 Range/Units Serum Glucose 106 74-106 mg/dL Microbiology Date/Time Source Procedure Growth Status 06/21/24 04:30 Voided Urine Urine Culture - Preliminary Resulted 06/20/24 18:41 Blood Blood Culture - Preliminary NO GROWTH AFTER 48 HOURS OF INCUBATION. Resulted Problem List/Assessment/Plan Problem List/Assessment/Plan 1. Sepsis Plan: Monitor, IV antibiotics 2. Acute cystitis without hematuria Plan: Monitor, PPI, DVT prophylaxis 3. Anemia, unspecified Plan: Monitor, IV iron 4. 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 Plan: Monitor, TOOLING SUPERVISOR consult, tumor marker KG Assessment/Plan Subjective: Patient is awake and alert. Objective: Patient is a 38 year old female who states her last menses cycle was last year. Patient has a very large distended abdomen. Patients say she has lost lots of weight over the past several months, she can't remember how much. Patient appears to be emaciated with a large, distended abdomen. Patient's CT imaging shows a metastatic process. Patient reports having this mass to abdomen for over a year and did not seek any medical attention. Patient was informed in detail that likely mass is malignancy.CA-19-9 is 1733 and CA 125 is 79.6, patient informed she needs to follow up with PCP and be referred to tertiary facility for assistant hvac mechanic-Oncology, patient did verbalize understanding. Today hemoglobin was 7.5 patient is getting IV infusions of iron. We will monitor hemoglobin overnight Plan: Monitor hemoglobin, likely we will discharge tomorrow, continue with IV antibiotics Plan discussed with: Patient My Orders My Orders Orders - SARAH CAPPS Procedure Category Date Status Time * Energy Technician CONS 06/22/24 Transmitted Consult Date of Service: Jun 22, 2024 Billing Provider: VIRAL JEONG MD Common Visit Codes: [id number] INP/OBS CARE (MOD) SARAH CAPPS Jun 22, 2024 20:10
[2024-06-22 21:00] VITALS: BP 107/61; PULSE 94; RESP 19; TEMP 98.7; O2SAT 100
[2024-06-23 01:00] VITALS: BP 102/65; PULSE 90; RESP 18; TEMP 97.8; O2SAT 96
[2024-06-23 05:00] VITALS: BP 99/58; PULSE 85; RESP 19; TEMP 98; O2SAT 97
[2024-06-23 07:16] LABS: Basophils # (auto) 0 10 ^3/uL (0-0.2); Eosinophils # (auto) 0.1 10 ^3/uL (0-0.8); Hemoglobin 7.4 g/dL (12.2-16.2); Nucleated Red Blood Cells % 0.1 %; White Blood Cell 11.3 10^3/uL (4.4-10.8)
[2024-06-23 07:20] LABS: Basophils % (auto) 0.2 % (0.0-2.0); Hematocrit 23.6 % (36.0-46.0); Lymphocytes % (auto) 17.5 % (10.0-50.0); Mean Corpuscular Hemoglobin 25.7 pg (28.0-32.0); Mean Corpuscular Hgb Conc. 31.4 g/dL (32.0-36.0); Mean Corpuscular Volume 81.9 fL (80.0-100.0); Monocytes % (auto) 8.7 % (0.0-12.0); Neutrophils # (auto) 8.2 10 ^3/uL (1.6-8.6); Neutrophils % (auto) 72.6 % (37.0-80.0); Platelet Count (auto) 530 10^3/uL (140-450); Red Blood Cells 2.88 10^6/uL (4.0-5.20); Red Cell Distribution Width 15.5 % (11.8-14.3)
[2024-06-23 07:54] VITALS: BP 105/67; PULSE 87; RESP 15; TEMP 98; O2SAT 97
[2024-06-23] MEDS ORDERED: FERR-7 PO (11:09)
[2024-06-23 11:53] VITALS: BP 105/66; PULSE 92; RESP 19; TEMP 98; O2SAT 95
[2024-06-23 11:58] VITALS: BP 105/66; PULSE 92; RESP 19; TEMP 98; O2SAT 95
[2024-06-23] MEDS ORDERED: CIPR500T4 PO (17:44)
--- NOTE | 2024-06-23 17:47 | DVHDS2 ---
Discharge Summary Date of Admission Jun 20, 2024 at 21:43 Date of Discharge: Jun 23, 2024 Admitting Diagnosis Sepsis, anemia, uterine mass Labs/Diagnostic Data: Laboratory Results Test 06/23/24 05:54 06/22/24 13:50 06/21/24 04:30 06/21/24 04:25 White Blood Count 11.3 10^3/uL (4.4-10.8) Red Blood Count 2.88 10^6/uL (4.0-5.20) Hemoglobin 7.4 g/dL (12.2-16.2) Hematocrit 23.6 % (36.0-46.0) Mean Corpuscular Volume 81.9 fL (80.0-100.0) Mean Corpuscular Hemoglobin 25.7 pg (28.0-32.0) Mean Corpuscular Hemoglobin Concent 31.4 g/dL (32.0-36.0) Red Cell Distribution Width 15.5 % (11.8-14.3) Platelet Count 530 10^3/uL (140-450) Mean Platelet Volume 6.9 fL (6.9-10.8) Neutrophils (%) (Auto) 72.6 % (37.0-80.0) Lymphocytes (%) (Auto) 17.5 % (10.0-50.0) Monocytes (%) (Auto) 8.7 % (0.0-12.0) Eosinophils (%) (Auto) 1.0 % (0.0-7.0) Basophils (%) (Auto) 0.2 % (0.0-2.0) Neutrophils # (Auto) 8.2 10 ^3/uL (1.6-8.6) Lymphocytes # (Auto) 2.0 10 ^3/uL (0.4-5.4) Monocytes # (Auto) 1.0 10 ^3/uL (0-1.3) Eosinophils # (Auto) 0.1 10 ^3/uL (0-0.8) Basophils # (Auto) 0 10 ^3/uL (0-0.2) Nucleated Red Blood Cells 0.1 % Sodium Level 135 mmol/L (136-145) Potassium Level 3.7 mmol/L (3.5-5.1) Chloride Level 101 mmol/L (98-107) Carbon Dioxide Level 25 mmol/L (20-31) Anion Gap 9 (5-15) Blood Urea Nitrogen 13 mg/dL (9-23) Creatinine 0.70 mg/dL (0.550-1.02) Glomerular Filtration Rate Calc 112 mL/min (>90) BUN/Creatinine Ratio 18.6 (10.0-20.0) Serum Glucose 106 mg/dL (74-106) Calcium Level 8.5 mg/dL (8.7-10.4) Urine Color Yellow (Yellow) Urine Clarity Turbid (Clear) Urine pH 6.0 (5.0-9.0) Urine Specific [place] > 1.050 (1.001-1.035) Urine Protein 1+ (Negative) Urine Ketones Negative (Negative) Urine Blood Negative /uL (Negative) Urine Nitrite Negative (Negative) Urine Bilirubin Negative (Negative) Urine Urobilinogen Normal mg/dL (Negative) Urine Leukocyte Esterase 2+ /uL (Negative) Urine RBC 7 /hpf (0 - 4) Urine Microscopic WBC 19 /HPF (0-5) Urine Squamous Epithelial Cells Few /hpf (<5) Urine Bacteria None seen /hpf (None Seen) Urine Hyaline Casts Few /lpf (0 - 2) Urine Mucus Few (None Seen) Urine Glucose Normal mg/dL (Normal) Urine Opiates Screen Neg (NEGATIVE) Urine Fentanyl Screen Neg (NEGATIVE) Urine Barbiturates Screen Neg (NEGATIVE) Urine Phencyclidine Screen Neg (NEGATIVE) Urine Amphetamines Screen Neg (NEGATIVE) Urine Benzodiazepines Screen Neg (NEGATIVE) Urine Cocaine Screen Neg (NEGATIVE) Urine Cannabinoids Screen Neg (NEGATIVE) Total Bilirubin 0.3 mg/dL (0.2-1.0) Aspartate Amino Transferase (AST) 33 U/L (13-40) Alanine Aminotransferase (ALT) < 9 U/L (7-40) Alkaline Phosphatase 50 U/L (46-116) Total Protein 7.1 g/dL (5.7-8.2) Albumin 3.6 g/dL (3.2-4.8) Test 06/20/24 23:57 06/20/24 18:41 06/20/24 17:08 Lactate Dehydrogenase 220 U/L (120-246) Carcinoembryonic Antigen 51.28 ng/mL (<=5.0) CA 19-9 Antigen 1733 U/mL (0-35) CA 125 Antigen 79.6 U/mL (0.0-38.1) Lactic Acid Level 2.6 mmol/L (0.4-2.0) Iron Level 15 ug/dL (50-170) Total Iron Binding Capacity 235 ug/dL (250-425) Percent Iron Saturation 6.4 % (15-50) Prothrombin Time 12.4 sec (9.3-11.8) Prothrombin Time INR 1.19 (0.9-1.15) Activated Partial Thromboplast Time 27.1 SEC (24.5-34.5) Phosphorus Level 3.0 mg/dL (2.4-5.1) Magnesium Level 1.6 mg/dL (1.6-2.6) Ammonia < 10 umol/L (11-32) Thyroid Stimulating Hormone (TSH) 5.14 uIU/mL (0.55-4.78) Beta HCG, Quantitative 0.4 mIU/mL (1.5-4.2) Other Laboratory Tests 06/23/24 05:54 06/22/24 13:50 Brief Hx & Hospital Course: Patient was admitted for sepsis likely secondary to acute cystitis. Patient was subsequently found to have uterine malignant neoplasm likely leiomyosarcoma. Patient was seen by wind turbine design engineer doctors and and recommended patient have urgent follow up with photo optics technician Oncology.CA-19-9 is 1733 and CA 125 is 79.6, patient informed she needs to follow up with PCP and be referred to tertiary facility for photo optics technician- Oncology, patient did verbalize understanding. Polyp patient's questions and concerns were answered. Patient was subsequently found to have iron deficiency anemia was given IV iron during hospital stay and was sent home on iron tablets. Patient was also sent home on Cipro x7 days for a few cystitis. Patient did receive Rocephin during hospital stay Condition at Discharge: Fair Final Diagnosis/Problems List 1. Sepsis likely from acute cystitis 2. Acute cystitis without hematuria 3. Anemia, unspecified 4. 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 Discharge Disposition: Home Discharge Instruct/Medications Diet: Regular Activity: No Restrictions, As Tolerated Follow Up/Referral: PCP within 1 week and stat refferal to NURSERY WORKER/ oncology for [address] Discharge Statement: "Patient was advised to return to the ER or call 911 if any headaches, dizziness, shortness of breath, chest pain, abdominal pain, bleeding, fevers, or worsening of medical condition. Patient was counseled about treatment plan, medications, possible side effects, patientverbalized understanding. All questions were answered to the best of my ability. This discharge took greater then 30 minutes in planning, reviewing documentation, counseling the patient, and discussing with other team members." ASSESSMENT ASSESSMENT Assessment 1. Sepsis 2. Acute cystitis without hematuria 3. Anemia, unspecified 4. 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 SARAH CAPPS Jun 23, 2024 17:47
== END 2024-06-23 12:40 | disposition home or self-care (01) | DRG 872 ==
LOC: ER 16:25 → OVERFLOW 21:43 → EAST 06-21 13:30
PROVIDERS: ATTEND Nurse Practitioner
DX: A41.9 Sepsis, unspecified organism (principal); N30.00 Acute cystitis without hematuria; J90 Pleural effusion, not elsewhere classified; C55 Malignant neoplasm of uterus, part unspecified; D50.9 Iron deficiency anemia, unspecified; Z82.49 Family history of ischemic heart disease and other diseases of the circulatory system
CPT/HCPCS: 36415; 71045; 74178; 76705; 80048; 80053; 80307; 81001; 82140; 82378; 83540; 83550; 83605; 83615; 83735; 84100; 84443; 84702; 85025; 85610; 85730; 86301; 86304; 87040; 87086; 93005; G0378; J1756; J2470